=== PATIENT | male | born 1990 ===

== ENCOUNTER 2021-02-04 03:02 | Observation (INO) | payer OTHER ==
--- NOTE | 2021-02-04 03:10 | ED ---
Abdominal Pain HPI - General Chief Complaint: Abdominal Pain Stated Complaint: Abd Pain Time Seen by Provider: 02/04/21 03:04 Source: patient, EMS Mode of arrival: EMS - Related Data Allergies Allergy/AdvReac Type Severity Reaction Status Date / Time No Known Allergies Allergy Verified 02/04/21 03:09 Review of Systems ROS Statement: Those systems with pertinent positive or pertinent negative responses have been documented in the HPI. ROS Other: All systems not noted in ROS Statement are negative. Past Medical History Past Medical History: No Reported History History of Any Multi-Drug Resistant Organisms: None Reported Past Surgical History: Orthopedic Surgery Past Psychological History: No Psychological Hx Reported Smoking Status: Never smoker Past Alcohol Use History: None Reported Past Drug Use History: None Reported Course Vital Signs 02/04/21 03:03 Temperature 98.4 F Pulse Rate 93 Respiratory 16 Rate Blood Pressure 109/63 O2 Sat by Pulse 98 Oximetry Disposition Clinical Impression: Acute appendicitis Disposition: ADMITTED IP TO THIS HOSP Condition: Good Is patient prescribed a controlled substance at d/c from ED?: No Referrals: None,Stated [Primary Care Provider] - 1-2 days
[2021-02-04] MEDS ORDERED: LORazepam 2 MG/ML INJ IV STA (03:50)
[2021-02-04] MEDS ORDERED: MORPHINE SULFATE 4 MG/ML SYRINGE IV PRN (04:17)
[2021-02-04] MEDS ORDERED: NALOXONE 0.4 MG/ML 1 ML VIAL IV PRN (04:17)
[2021-02-04] MEDS ORDERED: ONDANSETRON 4 MG/2 ML VIAL IVP PRN (04:17)
[2021-02-04] MEDS ORDERED: AMPICILLIN-SULBACTAM 3 GM in SODIUM CHLORIDE 0.9% 100 ML IVPB STA (04:19)
[2021-02-04] MEDS ORDERED: SODIUM CHLORIDE 0.45% 1,000 ML IV SCH (04:30)
[2021-02-04] MEDS ORDERED: AMPICILLIN-SULBACTAM 3 GM in SODIUM CHLORIDE 0.9% 100 ML IVPB ONE (05:00)
[2021-02-04] MEDS: SODIUM CHLORIDE 0.9% 1,000 ML IV SCH ×3 (06:07→21:51)
[2021-02-04] MEDS ORDERED: IV FLUID CONTINUATION 1,000 ML IV ONE (09:05)
[2021-02-04] MEDS ORDERED: HEPARIN SODIUM,PORCINE 5,000 UNIT/ML 1 ML VIAL SQ ONE (09:14)
[2021-02-04] MEDS ORDERED: ONDANSETRON 4 MG/2 ML VIAL IVP ONE (09:15)
--- NOTE | 2021-02-04 09:44 | P.GSHP ---
History of Present Illness H&P Date: 02/04/21 CHIEF COMPLAINT: Abdominal pain HISTORY OF PRESENT ILLNESS: This is a 30-year-old male with no significant past medical history. He was transferred from an outside facility due to acute appendicitis. Patient started having right lower quadrant abdominal pain at 7:30 last night. The pain became severe and he came into the ER for further evaluation and treatment. He denies any nausea or vomiting. Denies any fever chills or sweats. Imaging was done at outside facility had confirmed appendici tis. PAST MEDICAL HISTORY: See list. PAST SURGICAL HISTORY: See list. MEDICATIONS: See list. ALLERGIES: See list. SOCIAL HISTORY: No illicit drug use. REVIEW OF SYSTEMS: CONSTITUTIONAL: Denies fever or chills. HEENT: Denies blurred vision, vision changes, or eye pain. Denies hemoptysis CARDIOVASCULAR: Denies chest pain or pressure. RESPIRATORY: No shortness of breath. GASTROINTESTINAL: See HPI for pertinent findings HEMATOLOGIC: Denies bleeding disorders. GENITOURINARY: Denies any blood in urine or increased urinary frequency. SKIN: Denies pruitis. Denies rash. PHYSICAL EXAM: VITAL SIGNS: Reviewed GENERAL: Well-developed in no acute distress. HEENT: No sclera icterus. Extraocular movements grossly intact. Moist buccal mucosa. Head is atraumatic, normocephalic. No nasal drainage. ABDOMEN: Soft. Nondistended. Right lower quadrant tenderness with palpation NEUROLOGIC: Alert and oriented. Cranial nerves II through XII grossly intact. LABORATORY DATA: Please refer to chart IMAGING: Please refer to chart ASSESSMENT: 1. Acute appendicitis PLAN: Patient scheduled for laparoscopic appendectomy today with Dr. rojas Continue antibiotics Continue IV fluids Continue pain medication as needed Physician Grease And Tallow Pumper note has been reviewed by physician. Signing provider agrees with the documented findings, assessment, and plan of care. Past Medical History Past Medical History: No Reported History History of Any Multi-Drug Resistant Organisms: None Reported Past Surgical History: Orthopedic Surgery Past Psychological History: No Psychological Hx Reported Smoking Status: Never smoker Past Alcohol Use History: None Reported Past Drug Use History: None Reported Medications and Allergies Home Medications Medication Instructions Recorded Confirmed Type No Known Home Medications 02/04/21 02/04/21 History Allergies Allergy/AdvReac Type Severity Reaction Status Date / Time No Known Allergies Allergy Verified 02/04/21 06:47 Surgical - Exam Vital Signs Temp Pulse Resp BP Pulse Ox 98.4 F 93 16 109/63 98 02/04/21 03:03 02/04/21 03:03 02/04/21 03:03 02/04/21 03:03 02/04/21 03:03
[2021-02-04] MEDS ORDERED: ROCURONIUM 10 MG/ML (5 ML VIAL) IV ONE (09:58)
[2021-02-04] MEDS ORDERED: fentaNYL (PF) 50 MCG/ML 2 ML AMP ONE (09:58)
[2021-02-04] MEDS ORDERED: LIDOCAINE 1% INJ 10MG/ML (20 ML MDV) ONE (09:58)
[2021-02-04] MEDS ORDERED: MIDAZOLAM 2 MG/2 ML VIAL ONE (09:58)
[2021-02-04] MEDS ORDERED: GLYCOPYRROLATE 0.2 MG/ML 2 ML VIAL ONE (09:58)
[2021-02-04] MEDS ORDERED: PROPOFOL 10 MG/ML 20 ML VIAL IV ONE (09:58)
[2021-02-04] MEDS ORDERED: NEOSTIGMINE 1 MG/ML 10 ML VIAL ONE (09:58)
[2021-02-04] MEDS ORDERED: SUCCINYLCHOLINE CHLORIDE 100 MG/5 ML SYR IV ONE (09:58)
[2021-02-04] MEDS ORDERED: BUPIVACAINE (PF) 0.25% 30 ML VIAL SQ ONE (10:17)
--- NOTE | 2021-02-04 10:32 | P.OP ---
Date of Procedure: 02/04/21 Preoperative Diagnosis: Acute appendicitis appendicitis Postoperative Diagnosis: Acute appendicitis Procedure(s) Performed: Laparoscopic appendectomy Anesthesia: FERNANDO Surgeon: David Alvarado Pathology: other (Appendix) Condition: stable Disposition: PACU Description of Procedure: HThe patient's placed on the operating table in the supine position. The patient received general anesthesia. The abdomen was prepped and draped in the usual sterile fashion. The skin was anesthetized 1% local Xylocaine at the trocar sites. Using an 11 blade the skin was incised at the umbilicus. The umbilicus was grasped with a Yazmin clamp and then a Veress needle was placed into the peritoneal cavity. Position of the Veress needle was confirmed with positive drop test. After adequate insufflation a 5 mm trocar was placed into the peritoneal cavity. The abdomen was further insufflated. And then the laparoscope was placed in the peritoneal cavity. Next a 5 mm trocar was placed in the midline suprapubic position. And then a 10 mm trocar was placed in the midline epigastric position. The patient was rotated with the right side up and in Trendelenburg. The appendix was visualized. The appendix appeared to be inflamed. The appendix was grasped and then using the Harmonic scissors the mesoappendix was divided. A PDS Endoloop was then placed around the base of the appendix. And then the appendix was divided using Harmonic scissors. The appendix was placed into an Endo Catch and brought out through the 10 mm trocar site. The abdomen was irrigated. There is no bleeding seen. The trochars withdrawn. The skin was closed interrupted 3-0 Monocryl suture. Dermabond dressing was applied. Patient was sent to recovery room in stable condition.
[2021-02-04] MEDS ORDERED: HYDROmorphone 0.5 MG/0.5 ML SYRINGE IVP ONE (11:09)
[2021-02-04] MEDS ORDERED: KETOROLAC 15 MG/ML 1 ML VIAL IVP ONE (11:10)
[2021-02-04] MEDS ORDERED: SODIUM CHLORIDE 0.9% 1,000 ML IV ONE ×3 (11:30→14:26)
[2021-02-04] MEDS ORDERED: KETOROLAC 15 MG/ML 1 ML VIAL IVP PRN (13:47)
--- NOTE | 2021-02-04 14:02 | P.CONS ---
History of Present Illness - Reason for Consult Acute appendicitis - History of Present Illness Patient is a 30-year-old the pleasant male came in with complains of a right lower quadrant abdominal pain without any nausea vomiting abdominal pain was severe at that time patient came to the hospital found to have appendicitis subsequently transferred to [facility] subsequently underwent the emergent appendectomy patient was started on Unasyn patient is on Protonix. Patient denied any significant pain didn't move his bowel or past gas. Patient has sluggish bowel sounds at this time. Review of Systems REVIEW OF SYSTEMS: CONSTITUTIONAL: No fever, no malaise, no fatigue. HEENT: No recent visual problems or hearing problems. Denied any sore throat. CARDIOVASCULAR: No chest pain, orthopnea, PND, no palpitations, no syncope. PULMONARY: No shortness of breath, no cough, no hemoptysis. GASTROINTESTINAL: As mentioned in HPI NEUROLOGICAL: No headaches, no weakness, no numbness. HEMATOLOGICAL: Denies any bleeding or petechiae. GENITOURINARY: Denies any burning micturition, frequency, or urgency. MUSCULOSKELETAL/RHEUMATOLOGICAL: Denies any joint pain, swelling, or any muscle pain. ENDOCRINE: Denies any polyuria or polydipsia. The rest of the 14-point review of systems is negative. Past Medical History Past Medical History: No Reported History History of Any Multi-Drug Resistant Organisms: None Reported Past Surgical History: Orthopedic Surgery Past Psychological History: No Psychological Hx Reported Smoking Status: Never smoker Past Alcohol Use History: None Reported Past Drug Use History: None Reported Medications and Allergies Home Medications Medication Instructions Recorded Confirmed Type No Known Home Medications 02/04/21 02/04/21 History Allergies Allergy/AdvReac Type Severity Reaction Status Date / Time No Known Allergies Allergy Verified 02/04/21 06:47 Physical Exam Vitals: Vital Signs Temp Pulse Pulse Pulse Pulse Resp BP 02/04/21 13:30 88 18 02/04/21 13:00 82 16 02/04/21 12:30 57 L 16 02/04/21 12:00 56 L 16 02/04/21 11:25 74 16 02/04/21 11:10 63 16 02/04/21 10:55 65 16 02/04/21 10:42 97.1 F L 81 12 02/04/21 09:13 98.0 F 82 18 02/04/21 08:00 98.0 F 86 16 118/74 02/04/21 03:03 98.4 F 93 16 109/63 BP BP Pulse Ox 02/04/21 13:30 95/51 99 02/04/21 13:00 99 02/04/21 12:30 106/58 99 02/04/21 12:00 108/58 99 02/04/21 11:25 125/62 97 02/04/21 11:10 123/70 97 02/04/21 10:55 113/70 100 02/04/21 10:42 129/68 97 02/04/21 09:13 125/79 100 02/04/21 08:00 98 02/04/21 03:03 98 Intake and Output 02/03/21 02/04/21 02/04/21 22:59 06:59 14:59 Intake Total 1000 Output Total 5 Balance 995 Intake: IV 1000 Output: Estimated Blood Loss 5 Other: Weight 83.461 kg 83.46 kg PHYSICAL EXAMINATION: GENERAL: The patient is alert and oriented x3, not in any acute distress. Well developed, well nourished. HEENT: Pupils are round and equally reacting to light. EOMI. No scleral icterus. No conjunctival pallor. Normocephalic, atraumatic. No pharyngeal erythema. No thyromegaly. CARDIOVASCULAR: S1 and S2 present. No murmurs, rubs, or gallops. PULMONARY: Chest is clear to auscultation, no wheezing or crackles. ABDOMEN: Soft, nontender, surgical site areas appear to be clean sluggish bowel sounds MUSCULOSKELETAL: No joint swelling or deformity. EXTREMITIES: No cyanosis, clubbing, or pedal edema. NEUROLOGICAL: Gross neurological examination did not reveal any focal deficits. SKIN: No rashes. Assessment and Plan Plan: -Acute appendicitis: Patient is status post appendectomy and patient is on Unasyn which is appropriate which can be continued. Continue with IV fluids. Patient will be started on Toradol as well for pain to avoid opiate analgesia. -GI prophylaxis with the Protonix and patient is also on Lovenox for DVT prophylaxis
[2021-02-04] MEDS: AMPICILLIN-SULBACTAM 3 GM in SODIUM CHLORIDE 0.9% 100 ML IVPB SCH ×2 (15:57→21:04)
[2021-02-04] MEDS: PANTOPRAZOLE 40 MG/10 ML VIAL IV SCH (16:45)
[2021-02-05] MEDS: SODIUM CHLORIDE 0.9% 1,000 ML IV SCH ×2 (05:13→13:08)
[2021-02-05] MEDS: AMPICILLIN-SULBACTAM 3 GM in SODIUM CHLORIDE 0.9% 100 ML IVPB SCH ×2 (05:13→13:08)
[2021-02-05] MEDS: PANTOPRAZOLE 40 MG/10 ML VIAL IV SCH (08:19)
[2021-02-05] MEDS ORDERED: HYDROcodone/APAP 5-325MG 1 EACH TAB PO PRN (08:24)
[2021-02-05] MEDS ORDERED: ENOXAPARIN 40 MG/0.4 ML SYRINGE SQ SCH (09:00)
[2021-02-05 10:13] LABS: African American GFR (CKD) >90 (>60 ml/min/1.73 sqM); Anion Gap 7 mmol/L; Blood Urea Nitrogen 9 mg/dL (9-20); Calcium 8.4 mg/dL (8.4-10.2); Carbon Dioxide 21 mmol/L (22-30); Chloride 109 mmol/L (98-107); Glucose 85 mg/dL (74-99); Non-African American GFR(CKD) >90 (>60 ml/min/1.73 sqM); Potassium 4.1 mmol/L (3.5-5.1); Sodium 137 mmol/L (137-145)
[2021-02-05 10:51] LABS: Basophils % (A) 0 %; Eosinophils # (A) 0.1 k/uL (0-0.7); Eosinophils % (A) 1 %; HCT 41.8 % (39.0-53.0); HGB 14.2 gm/dL (13.0-17.5); Lymphocytes # (A) 1.8 k/uL (1.0-4.8); Lymphocytes % (A) 25 %; MCH 29.2 pg (25.0-35.0); MCV 85.7 fL (80.0-100.0); Mean Platelet Volume 8.6; Monocytes # (A) 0.4 k/uL (0-1.0); Monocytes % (A) 5 %; Neutrophils # (A) 4.7 k/uL (1.3-7.7); Neutrophils % (A) 67 %; Platelet Count 218 k/uL (150-450); RBC 4.87 m/uL (4.30-5.90); RDW 13.1 % (11.5-15.5)
[2021-02-05 12:29] VITALS: BP 106/67; PULSE 61; RESP 16; TEMP 97.9
--- NOTE | 2021-02-05 12:50 | P.DS ---
Providers Date of admission: 02/04/21 04:19 Expected date of discharge: 02/05/21 Attending physician: David Alvarado Consults: 02/04/21 10:32 Consult Physician Routine Consulting Provider: John Hunt Consult Reason/Comments: Medical management Do you want consulting provider notified?: Yes Primary care physician: Stated None Hospital Course: Discharge diagnosis 1. Acute appendicitis status post laparoscopic appendectomy Hospital course This is a 30-year-old male with no significant past medical history. He was transferred from an outside facility due to acute appendicitis. Patient started having right lower quadrant abdominal pain at 7:30 last night. The pain became severe and he came into the ER for further evaluation and treatment. He denies any nausea or vomiting. Denies any fever chills or sweats. Imaging was done at outside facility had confirmed appendicitis. Patient is status post lap her scopic appendectomy. He tolerated surgery well. His pain is controlled. He is tolerating diet. He is up and ambulating. He is passing gas. He is afebrile. He is stable for discharge. Please refer to chart for any further details. Physician Emblem Cutter note has been reviewed by physician. Signing provider agrees with the documented findings, assessment, and plan of care. Patient Condition at Discharge: Stable Plan - Discharge Summary Discharge Rx Participant: Yes New Discharge Prescriptions: No Action No Known Home Medications Discharge Medication List No Known Home Medications 02/04/21 [History] Follow up Appointment(s)/Referral(s): None,Stated [Primary Care Provider] - 1-2 days David Alvarado MD [STAFF PHYSICIAN] - 1 Week Activity/Diet/Wound Care/Special Instructions: No driving while taking [place] No lifting over 10 pounds You may shower. No soaking or tub baths for 2 weeks Very light activity until you are reevaluated at your follow up appointment with your surgeon Diet Regular Discharge Disposition: HOME SELF-CARE
--- NOTE | 2021-02-05 15:11 | P.PN ---
Subjective Progress Note Date: 02/05/21 - Reason for Consult Acute appendicitis - History of Present Illness Patient is a 30-year-old the pleasant male came in with complains of a right lower quadrant abdominal pain without any nausea vomiting abdominal pain was severe at that time patient came to the hospital found to have appendicitis subsequently transferred to [facility] subsequently underwent the emergent appendectomy patient was started on Unasyn patient is on Protonix. Patient denied any significant pain didn't move his bowel or past gas. Patient has sluggish bowel sounds at this time. 02/05/2021 Patient is seen and evaluated and follow-up with no acute overnight issues. Patient states his abdominal discomfort has subsided and he is status post appendectomy. Following along closely with surgery. Patient is passing gas but denies a bowel movement at this time. Patient denies any chest pain, shortness of breath, or palpitations. Patient is afebrile. Review of systems: Constitutional: No reports of fatigue, fever, or chills Cardiovascular: No reports of chest pain or palpitations Respiratory: No reports of shortness of breath or cough GI: No reports of nausea, vomiting, or diarrhea : No reports of dysuria or retention Neurovascular: No reports of weakness or numbness All medications have been reviewed Objective - Vital Signs Vital signs: Vital Signs Temp 98.2 F 02/05/21 05:20 Pulse 66 02/05/21 05:20 Resp 14 02/05/21 08:00 BP 113/68 02/05/21 05:20 Pulse Ox 98 02/05/21 05:20 Intake & Output 02/04/21 02/05/21 02/05/21 18:59 06:59 18:59 Intake Total 2445 1320 Output Total 5 Balance 2440 1320 Weight 83.46 kg Intake: IV 1925 Intake, IV Titration 520 1140 Amount Ampicillin-Sulbactam 3 gm 100 In Sodium Chloride 0.9% 100 ml @ 200 mls/hr IVPB Q8H DEEPAK Rx#:[id number] Sodium Chloride 0.9% 1, 520 1040 000 ml @ 130 mls/hr IV . Q7H42M DEEPAK Rx#:[id number] Oral 180 Output: Estimated Blood Loss 5 Other: Voiding Method Toilet Toilet - Exam GENERAL: The patient is alert and oriented x3, not in any acute distress. Well developed, well nourished. HEENT: Pupils are round and equally reacting to light. EOMI. No scleral icterus. No conjunctival pallor. Normocephalic, atraumatic. No pharyngeal erythema. No thyromegaly. CARDIOVASCULAR: S1 and S2 present. No murmurs, rubs, or gallops. PULMONARY: Chest is clear to auscultation, no wheezing or crackles. ABDOMEN: Soft, nontender, surgical site areas is dry and intact. Bowel sounds noted. MUSCULOSKELETAL: No joint swelling or deformity. EXTREMITIES: No cyanosis, clubbing, or pedal edema. NEUROLOGICAL: Gross neurological examination did not reveal any focal deficits. SKIN: No rashes. - Labs CBC & Chem 7: 02/05/21 08:36 02/05/21 08:36 Assessment and Plan Assessment: -Acute appendicitis: Patient is status post appendectomy and patient is on Unasyn which will be discontinued. IV fluids discontinued as well. patient is maintained on oral hydration -GI prophylaxis with the Protonix -DVT prophylaxis: Subcutaneous Lovenox Plan: Continue with current medications. Instructed the patient increase activity as tolerated. Following along closely with surgery during hospitalization. Patient anticipates discharge today and states his abdominal discomfort has improved. Patient is looking to go home today and will likely be discharged. Thank you for this consultation.
== END 2021-02-05 14:04 | disposition home or self-care (01) ==
LOC: EC 03:02 → 6NMEDSUR 04:19 → 5NMEDONC 14:19
PROVIDERS: ADMIT Surgery; ATTEND Surgery
DX: K35.80 Unspecified acute appendicitis (principal); Z20.822 Contact with and (suspected) exposure to COVID-19
CPT/HCPCS: 99285; 88304; 80048; 85025; 87635; 44970; G0378 ×3; J2250; J1644; J2710; J2405; J2001; J1650; J3010; J0295 ×2; J1885; J0330; J2704; C9113 ×2; J1170